=== PATIENT | male | born 1975 | race Caucasian/White ===

== ENCOUNTER 2021-07-09 22:53 | Emergency (ER) | payer OTHER, SELFPAY ==
[2021-07-09 22:57] VITALS: BP 135/82; PULSE 71; RESP 18; TEMP 36.2; O2SAT 96
--- NOTE | 2021-07-10 00:05 | ED.EYEPROB ---
HPI - Eye Problem General Chief complaint: Eye Problems Stated complaint: flash burn to eyes Time Seen by Provider: 07/09/21 23:54 Source: patient Mode of arrival: ambulatory Limitations: no limitations History of Present Illness HPI Narrative: Patient is a 46-year-old male complaining of flash burn in both eyes earlier today had a momentary episode of blurred vision that lasted for about 1 to 2 minutes and has resolved since. Patient states that he has not had any visual disturbance since the incident. Patient denies any blurred vision or vision loss. Patient states that he was feeling better but tonight started to have pain in both eyes and started to water. Denies any other pain or injuries. Related Data Allergies Allergy/AdvReac Type Severity Reaction Status Date / Time Penicillins Allergy Mild HIVES Verified 12/29/09 11:43 Review of Systems Review of Systems: All systems reviewed & are unremarkable except as noted in HPI and below Constitutional: Constitutional: Reports as per HPI PMFSH Comments Past medical history: None Family history: None Social history: Non-smoker no EtOH or drug use Exam Const: General: healthy appearing, no acute distress and alert Nutritional Appearance: well nourished Orientation/consciousness: patient oriented x3 Limitations: no limitations HENMT: Head: normal to inspection Ears: external ears normal and EAC's normal Face and sinus: normal facial exam Eyes: Conjunctivae: conjunctivae normal and normal conjunctivae Pupils: Equal, round and reactive pupils present EOM: EOMs intact bilaterally Direct Ophthalmoscopy: no photophobia Neck: Neck: normal visual inspection Resp: Effort & Inspection: normal respiratory effort Neuro: General: patient oriented x3 and moves all extremities Extrem: General: normal to inspection Course Vital Signs Vital signs: Vital Signs Temperature 36.2 C L 07/09/21 22:57 Pulse Rate 71 07/09/21 22:57 Respiratory Rate 18 07/09/21 22:57 Blood Pressure 135/82 07/09/21 22:57 Pulse Oximetry 96 07/09/21 22:57 Temperature 36.2 C L 07/09/21 22:57 Pulse Rate 71 07/09/21 22:57 Respiratory Rate 18 07/09/21 22:57 Blood Pressure 135/82 07/09/21 22:57 Pulse Oximetry 96 07/09/21 22:57 MDM - Eye Problem MDM Narrative Medical decision making narrative: Normal visual acuity exam. Discharge Plan Discharge Clinical Impression: Flash burn of both eyes Patient Disposition: Home, Self-Care Condition: Improved Additional Instructions: Follow-up with ophthalmology in 1 to 2 days Prescriptions: New tobramycin 0.3 % drops 1 drp EACH EYE Q4H 5 Days Qty: 5 RF: 0 Follow-up/Referrals: Laury,CORNEL Edward [Primary Care Provider] - Time of Disposition: 00:28
[2021-07-10] MEDS: TETRACAINE HCL 0.5% OPHTH SOLN 4 ML BTL 1 DROP EACH EYE (00:19)
[2021-07-10] MEDS: TETANUS,DIPHTHERIA,AC PERTUSSIS ADULT (0.5 ML) BOOSTRIX IM (00:19)
[2021-07-10] MEDS: TOBRAMYCIN SULFATE 0.3% OPHTH SOLN 5 ML 1 DROP EACH EYE (00:38)
== END 2021-07-10 00:43 | disposition home or self-care (01) ==
PROVIDERS: Emergency Provider Emergency Medicine; PCP Registered Nurse
DX: H16.133 Photokeratitis, bilateral (principal); Z23 Encounter for immunization; W40.8XXA Explosion of other specified explosive materials, initial encounter
CPT/HCPCS: 90471; 90715; 99283; A9270

== ENCOUNTER 2024-01-13 14:42 | Emergency (ER) | payer OTHER, SELFPAY ==
[2024-01-13 14:56] VITALS: BP 131/85; PULSE 71; RESP 14; TEMP 37; O2SAT 100
--- NOTE | 2024-01-13 15:35 | ED.GENADULT ---
HPI - General Adult General Chief complaint: Urogenital-Male Stated complaint: UTI SYMPTOMS Time Seen by Provider: 01/13/24 15:12 Source: patient, RN notes reviewed and old records reviewed Mode of arrival: ambulatory Limitations: no limitations History of Present Illness HPI narrative: 48-year-old male to [facility] for complaint of blood in urine and urinary frequency for 2 day. Patient endorses history of kidney stone approximately 8 years ago. Patient states that he was experiencing bilateral lower back pain approximately 1 month ago for several days that eventually decreased and discontinued. Patient denies abdominal pain, flank pain, urinary urgency, retention, dribbling, dysuria, fever. Patient in no acute distress in exam room. Related Data Home Medications Medication Instructions Recorded Confirmed levothyroxine 125 mcg tablet mcg 01/13/24 (Synthroid) montelukast 10 mg tablet mg 01/13/24 Allergies Allergy/AdvReac Type Severity Reaction Status Date / Time Penicillins Allergy Mild HIVES Verified 01/13/24 14:59 Review of Systems Review of Systems: All systems reviewed & are unremarkable except as noted in HPI and below Constitutional: Constitutional: Reports no additional constitutional complaints Eyes: Eyes: Reports no additional eye complaints ENT: Reports system reviewed and no additional complaints, except as documented Cardiovascular: Cardiovascular: Reports no additional cardiovascular complaints, Denies chest pain and Denies dyspnea Respiratory: Respiratory: Reports no additional respiratory complaints, Denies cough and Denies dyspnea Gastrointestinal: Gastrointestinal: Reports as per HPI and Denies abdominal pain Genitourinary: Genitourinary: Reports as per HPI, Reports hematuria, Denies dysuria, Denies flank pain, Reports urinary frequency, Denies urinary hesitancy and Denies urinary urgency Musculoskeletal: Musculoskeletal: Reports as per HPI and Reports back pain ( bilat low back ache) Neurologic: Reports system reviewed and no additional complaints, except as documented Psychiatric: Psychiatric: Reports no additional psychiatric complaints PMFSH Comments At the time of my signature, I reviewed and agree with the nursing past medical, surgical, social, and family history. There is no relevant family history pertinent to the patient complaint. Exam Const: General: cooperative, healthy appearing, comfortable, no acute distress, alert and well nourished Nutritional Appearance: well nourished Orientation/consciousness: patient oriented x3 Limitations: no limitations HENMT: Head: normal to inspection Ears: external ears normal Face/Nose/Sinus: Normal external nose present, Normal nares present, normal facial exam, No erythema and No edema Face and sinus: normal facial exam, no erythema and no edema Mouth: Yes Normal oral and palatal mucosa present Eyes: General: appearance normal, both eyes and all related structures Neck: Neck: normal visual inspection, full ROM and no meningeal signs Lymphatic: no lymphadenopathy noted and no lymphedema noted Chest: Chest palpation & inspection: normal inspection of the chest Resp: Effort & Inspection: normal respiratory effort and able to speak in complete sentences Auscultation: clear to auscultation bilaterally Cardio: Jugular venous distension: no JVD Rate: regular rate Rhythm: regular rhythm : General: Yes no CVA tenderness Back/Spine/Pelvis: Cervical Spine: cervical ROM normal Skin: General skin exam: normal color, no rashes or lesions noted and turgor normal Neuro: General: patient oriented x3, gait normal, moves all extremities and no meningeal signs Speech: normal speech Gait exam (Neuro): Normal gait present Extrem: General: normal to inspection, full ROM and capillary refill normal Psych: Appearance: grossly normal and well kempt Course Course Emergency Course: Some parts of this dictation were generated by vu
== END 2024-01-13 15:42 | disposition home or self-care (01) ==
PROVIDERS: Emergency Provider Nurse Practitioner Family; PCP Registered Nurse
DX: R31.9 Hematuria, unspecified (principal); M54.50 Low back pain, unspecified; E03.9 Hypothyroidism, unspecified
CPT/HCPCS: 81003; 87086; 99213; G0463